=== PATIENT | female | born 1950 | race Caucasian/White ===

== ENCOUNTER 2016-06-30 13:28 | Emergency (ER) | payer MEDICARE | END 2016-06-30 14:04 | disposition home or self-care (01) | LOC: BURERS 13:28 | DX: E10.9 Type 1 diabetes mellitus without complications (principal); I25.2 Old myocardial infarction | CPT/HCPCS: 99281 ==

== ENCOUNTER 2016-09-07 16:41 | Outpatient (CLI) | payer MEDICARE | END 2016-09-07 16:42 | disposition home or self-care (01) | LOC: HPCALD 16:41 | PROVIDERS: ATTEND Family Medicine | DX: N39.0 Urinary tract infection, site not specified (principal) | CPT/HCPCS: 87077; 87086; 87186 ==

== ENCOUNTER 2016-09-10 09:06 | Outpatient (CLI) | payer MEDICARE ==
[2016-09-10 09:48] LABS: #Basophils 0.1 thou/uL (0.0-0.2); #Eosinphils 0.2 thou/uL (0.0-0.7); #Lymphocytes 2.1 thou/uL (1.20-3.40); #Monocytes 0.6 thou/uL (0.11-0.59); #Neutrophils 3.6 thou/uL (1.40-6.50); %Basophils 1.4 % (0.0-1.0); %Eosinophils 2.9 % (0.0-10.0); %Monocytes 9.3 % (0.0-10.0); %Neutrophils 54.5 % (42.0-75.0); Hemoglobin 12.3 g/dL (12.0-16.0); Mean Corpuscular HGB CONC 32.5 g/dL (32.0-36.0); Mean Corpuscular Hemoglobin 26.8 pg (27.0-31.0); Mean Corpuscular Volume 82.6 fl (81.0-99.0); Mean Platelet Volume 5.8 fL (7.4-10.4); Platelet Count 303 thou/uL (130-400); RBC Distribution Width 14.1 % (11.5-14.5); Red Blood Cell (RBC) Count 4.59 mill/uL (4.20-5.40); White Blood Cell (WBC) Count 6.5 thou/uL (4.8-10.8)
[2016-09-10 09:59] LABS: Hemoglobin A1c 7.5 % (4.0-6.0)
[2016-09-10 10:00] LABS: ALT (SGPT) 16 U/L (8-55); AST (SGOT) 18 U/L (5-34); Albumin 3.7 g/dL (3.4-4.8); Alkaline Phosphatase 81 U/L (40-150); Anion Gap 14 mmol/L (10-20); BUN (Urea Nitrogen) 28 mg/dL (9.8-20.1); Bilirubin, Total 0.3 mg/dL (0.2-1.2); Calc. Creatinine Clearance 0 mL/min (70-130); Calcium 9.6 mg/dL (7.8-10.44); Carbon Dioxide 28 mmol/L (23-31); Cardiac Risk 5.5 (Less than 4.5); Chloride 101 mmol/L (98-107); Cholesterol 149 mg/dl (< 200 Desired); Estimated GFR-MDRD 57; Globulin 3.2 g/dL (2.4-3.5); Glucose 167 mg/dL (80-115); HDL Cholesterol 27 mg/dL (>60 Neg Risk); LDL Cholesterol, Calculated 92 mg/dL; Potassium 4.1 mmol/L (3.5-5.1); Protein, Total 6.9 g/dL (6.0-8.3); Sodium 139 mmol/L (136-145); Triglycerides 152 mg/dL (Less than 150)
== END 2016-09-10 09:07 ==
LOC: HPCALD 09:06
PROVIDERS: ATTEND Family Medicine
DX: E78.5 Hyperlipidemia, unspecified (principal); E11.9 Type 2 diabetes mellitus without complications; I10 Essential (primary) hypertension
CPT/HCPCS: 36415; 80053; 80061; 83036; 85025

== ENCOUNTER 2016-11-02 16:57 | Outpatient (CLI) | payer MEDICARE, MEDICAID ==
[2016-11-02 19:01] LABS: Anion Gap 17 mmol/L (10-20); BUN (Urea Nitrogen) 24 mg/dL (9.8-20.1); Calc. Creatinine Clearance 0 mL/min (70-130); Calcium 9.8 mg/dL (7.8-10.44); Carbon Dioxide 25 mmol/L (23-31); Chloride 102 mmol/L (98-107); Estimated GFR-MDRD 45; Glucose 211 mg/dL (80-115); Potassium 4.6 mmol/L (3.5-5.1); Sodium 139 mmol/L (136-145)
== END 2016-11-02 16:58 | disposition home or self-care (01) ==
LOC: HPCALD 16:57
PROVIDERS: ATTEND Family Medicine
DX: R92.8 Other abnormal and inconclusive findings on diagnostic imaging of breast (principal)
CPT/HCPCS: 36415; 80048

== ENCOUNTER 2016-11-13 10:34 | Outpatient (CLI) | payer MEDICARE, MEDICAID | END 2016-11-13 10:35 | disposition home or self-care (01) | LOC: HPCALD 10:34 | PROVIDERS: ATTEND Family Medicine | DX: N39.0 Urinary tract infection, site not specified (principal) | CPT/HCPCS: 87077; 87086; 87186 ==

== ENCOUNTER 2017-01-11 16:52 | Outpatient (CLI) | payer MEDICARE, MEDICAID | END 2017-01-11 16:53 | disposition home or self-care (01) | LOC: HPCALD 16:52 | PROVIDERS: ATTEND Family Medicine | DX: R39.9 Unspecified symptoms and signs involving the genitourinary system (principal) | CPT/HCPCS: 87077; 87086; 87186 ==

== ENCOUNTER 2017-06-08 10:18 | Emergency (ER) | payer MEDICARE, MEDICAID ==
[2017-06-08] MEDS ORDERED: Orphenadrine Citrate 60 MG/2 ML VIAL ONE (11:00)
[2017-06-08] MEDS ORDERED: HYDROcodone/Acetaminophen 10/325 mg Tablet ONE (11:44)
--- NOTE | 2017-06-08 20:55 | RAD ---
CERVICAL SPINE TWO VIEWS 06/08/17 AP and lateral views were provided. There is no open mouth view. No fracture, dislocation or acute bony change was seen. There is disc space narrowing at C6-C7 with p rominent anterior osteophytes at that level. The other disc spaces appear normal. The C1 to dens dist ance is normal and the soft tissues are normal in thickness. IMPRESSION: Degenerative disc disease at C6-C7. No acute bony findings. POS: HOME
== END 2017-06-08 11:50 | disposition home or self-care (01) ==
LOC: BURERS 10:18
DX: M54.2 Cervicalgia (principal); I10 Essential (primary) hypertension; I25.10 Atherosclerotic heart disease of native coronary artery without angina pectoris
CPT/HCPCS: 72040; 96372; J2360

== ENCOUNTER 2017-10-25 15:13 | Outpatient (CLI) | payer MEDICAID, MEDICARE ==
--- NOTE | 2017-10-25 16:43 | RAD ---
LEFT SHOULDER THREE VIEWS: 10/25/17 No fracture, dislocation, or area of bony destruction was seen. The AC joint is normal in width. On o ne of the views, there is a hint of cortical irregularity along the inner surface of the upper raman l shaft. It is not visible at all on the other views where this area appears normal. All other bones were unremarkable. The visible adjacent lung is clear. IMPRESSION: Probably negative study, but see comment about equivocal cortical irregularity in the proximal raman l shaft on one view. Should this correlate with the site of pain, then further workup might be consid ered, such as a nuclear bone scan. As the finding is very subtle, and only visible on one view, I fee l that its significance at this point is equivocal until proven otherwise. Code T POS: HOME
== END 2017-10-25 15:14 | disposition home or self-care (01) ==
LOC: BURRAD 15:13
PROVIDERS: ATTEND Family Medicine
DX: M25.512 Pain in left shoulder (principal)

== ENCOUNTER 2018-11-23 20:52 | Emergency (ER) | payer MEDICARE ==
[~2018-11-23 20:52] MED LIST: Iopamidol 370 76% 100 ML VIAL ONE
[2018-11-23 21:30] LABS: #Basophils 0.1 thou/uL (0.0-0.2); #Eosinphils 0.2 thou/uL (0.0-0.7); #Lymphocytes 2.3 thou/uL (1.20-3.40); #Monocytes 0.8 thou/uL (0.11-0.59); #Neutrophils 4.3 thou/uL (1.40-6.50); %Basophils 1.2 % (0.0-1.0); %Eosinophils 2.3 % (0.0-10.0); %Lymphocytes 30.4 % (21.0-51.0); %Monocytes 9.9 % (0.0-10.0); %Neutrophils 56.2 % (42.0-75.0); Anisocytosis SLIGHT = 6-15 cells (100X) (0-5/hpf); MDiff Complete? YES; Mean Corpuscular HGB CONC 30.5 g/dL (32.0-36.0); Mean Corpuscular Volume 78.9 fL (78.0-98.0); Mean Platelet Volume 5.4 fL (7.4-10.4); Microcytosis SLIGHT = 6-15 cells (100X) (0-5/hpf); Ovalocytes SLIGHT = 2-5 cells (100X) (0-1/hpf); Platelet Count 299 thou/uL (130-400); Platelet Morphology Comment Appears Adequate; RBC Distribution Width 16.1 % (11.5-14.5); Red Blood Cell (RBC) Count 4.59 mill/uL (4.20-5.40); Small Platelets SLIGHT; White Blood Cell (WBC) Count 7.7 thou/uL (4.8-10.8)
[2018-11-23 21:35] LABS: ALT (SGPT) 17 U/L (8-55); AST (SGOT) 18 U/L (5-34); Albumin 3.7 g/dL (3.4-4.8); Alkaline Phosphatase 111 U/L (40-150); Anion Gap 15 mmol/L (10-20); BUN (Urea Nitrogen) 22 mg/dL (9.8-20.1); Bilirubin, Total 0.3 mg/dL (0.2-1.2); Calc. Creatinine Clearance 0 mL/min (70-130); Calcium 9.4 mg/dL (7.8-10.44); Carbon Dioxide 25 mmol/L (23-31); Chloride 101 mmol/L (98-107); Estimated GFR-MDRD 63; Globulin 3.6 g/dL (2.4-3.5); Glucose 145 mg/dL (80-115); Lipase 35 U/L (8-78); Potassium 4.5 mmol/L (3.5-5.1); Protein, Total 7.3 g/dL (6.0-8.3); Sodium 136 mmol/L (136-145)
[2018-11-23] MEDS ORDERED: Aspirin Chewable 81 MG TAB ONE (21:36)
--- NOTE | 2018-11-23 21:49 | RAD ---
XR Chest 1 View Portable History: Chest pain Comparison: None. Findings: Lungs are clear. No pneumothorax. No effusion. Cardiac silhouette and mediastinal contours appear within normal limits. Impression: No acute intrathoracic abnormality.
--- NOTE | 2018-11-23 22:26 | CT ---
CTA Angio Chest W WO Con History: Dyspnea Comparison: Radiograph same day Findings: CT angiogram chest performed after the intravenous ministration of contrast. 3-D rendering provided. No proximal segmental pulmonary arterial filling defect. No pericardial effusion. No mediastinal waylon opathy. Lungs are clear. No pneumothorax. No effusion. Low-grade atelectasis. Limited evaluation of the upper abdomen is unremarkable. No thoracic spine compression fracture no ac [place] displaced rib fracture. Impression: No proximal segmental pulmonary arterial filling defect or other acute intrathoracic abno rmality.
== END 2018-11-23 23:00 | disposition short-term general hospital (02) ==
LOC: BURERS 20:52
DX: R07.2 Precordial pain (principal); I10 Essential (primary) hypertension; E11.9 Type 2 diabetes mellitus without complications; G47.30 Sleep apnea, unspecified; I25.10 Atherosclerotic heart disease of native coronary artery without angina pectoris; I25.2 Old myocardial infarction; Z79.899 Other long term (current) drug therapy; Z79.84 Long term (current) use of oral hypoglycemic drugs
CPT/HCPCS: 71045; 71275; 80053; 83690; 83880; 84484; 85025; 85379; 93005; Q9967

== ENCOUNTER 2019-11-26 09:16 | Outpatient (CLI) | payer MEDICARE, MEDICAID ==
[2019-11-26 09:43] LABS: ALT (SGPT) 20 U/L (8-55); AST (SGOT) 17 U/L (5-34); Albumin 3.7 g/dL (3.4-4.8); Alkaline Phosphatase 120 U/L (40-110); Bilirubin, Direct 0.2 mg/dL (0.1-0.3); Bilirubin, Total 0.3 mg/dL (0.2-1.2); Cardiac Risk 3.6 (Less than 4.5); Cholesterol 114 mg/dl (< 200 Desired); HDL Cholesterol 32 mg/dL (>60 Neg Risk); LDL Cholesterol, Calculated 63 mg/dL; Protein, Total 6.8 g/dL (6.0-8.3); Triglycerides 97 mg/dL (Less than 150)
== END 2019-11-26 09:17 | disposition home or self-care (01) ==
LOC: BURLAB 09:16
PROVIDERS: ATTEND Internal Medicine Cardiovascular Disease
DX: I25.10 Atherosclerotic heart disease of native coronary artery without angina pectoris (principal)
CPT/HCPCS: 36415; 80061; 80076

== ENCOUNTER 2020-04-16 11:41 | Emergency (ER) | payer MEDICARE, MEDICAID ==
[2020-04-16 12:37] LABS: ALT (SGPT) 15 U/L (8-55); AST (SGOT) 20 U/L (5-34); Albumin 3.5 g/dL (3.4-4.8); Alkaline Phosphatase 98 U/L (40-110); Anion Gap 17 mmol/L (10-20); BUN (Urea Nitrogen) 14 mg/dL (9.8-20.1); Bilirubin, Total 0.4 mg/dL (0.2-1.2); Calc. Creatinine Clearance 0 mL/min (70-130); Calcium 9.3 mg/dL (7.8-10.44); Carbon Dioxide 27 mmol/L (23-31); Chloride 100 mmol/L (98-107); Glucose 230 mg/dL (80-115); Potassium 4.4 mmol/L (3.5-5.1); Protein, Total 7.5 g/dL (6.0-8.3); Sodium 140 mmol/L (136-145)
[2020-04-16 12:39] LABS: Band 6 % (5-11); Eosinophils 1 % (0-10); Hemoglobin 12.3 g/dL (12.0-16.0); Lymphocytes 20 % (21-51); MDiff Complete? YES; Mean Corpuscular HGB CONC 30.3 g/dL (32.0-36.0); Mean Corpuscular Hemoglobin 25.1 pg (27.0-31.0); Mean Corpuscular Volume 82.7 fL (78.0-98.0); Mean Platelet Volume 6.2 fL (7.4-10.4); Monocytes 5 % (0-10); Neutrophil 68 % (42-75); Platelet Count 245 thou/uL (130-400); RBC Distribution Width 14.6 % (11.5-14.5); Red Blood Cell (RBC) Count 4.92 mill/uL (4.20-5.40)
--- NOTE | 2020-04-16 13:35 | RAD ---
PORTABLE CHEST: 04/16/20 An AP portable film at 1234 is compared with an 11/23/18 study. The cardiac size is about the same. There are patchy interstitial and alveolar infiltrates bilaterall y, some of which have a slightly ground glass appearance. In the appropriate clinical context, COVID is a possibility as an etiology. The right hilum is slightly full, so there may be some adenopathy. W hile there is a lucent area within the density seen over the right lower lobe, it is probably not an actual cavity. But just a confluence of shadows. There are no effusions. While there is some prominen ce of the vasculature, the findings seem more likely due to infection than failure, although the latt er is not completely ruled out. The asymmetry of findings mitigates towards infection. IMPRESSION: Patchy interstitial and alveolar infiltrates. Pneumonia presumed until proven otherwise. A congestive element might be present as well. POS: HOME
[2020-04-16] MEDS ORDERED: cefTRIAXone\\ROCEPHIN 1 GM VIAL ONE (14:42)
[2020-04-16] MEDS ORDERED: Dexamethasone 4 mg/ml Vial ONE (14:42)
[2020-04-16] MEDS ORDERED: Azithromycin 500 MG VIAL ONE (14:42)
[2020-04-16] MEDS ORDERED: Enoxaparin Sodium 40 MG/0.4 ML SYRINGE ONE (14:42)
--- NOTE | 2020-04-16 16:57 | CT ---
CT OF THE CHEST WITHOUT CONTRAST: 04/16/[address] of the chest was done in this patient with dyspnea. This study was done without IV contrast . This exam shows multiple patchy ground glass infiltrates present in all lobes, present to a moderate degree. The appearance and distribution is consistent with a possible diagnosis of COVID injection. I t is more consistent with that than a conventional bacterial pneumonia. No effusions are seen. No med iastinal masses were noted. Coronary arteriosclerosis is present, especially in the LAD. A small hiat al hernia is suggested. IMPRESSION: 1. Moderate coverage of patchy ground glass infiltrates, all lobes, and an appearance that would be consistent with the diagnosis of COVID injection. Other etiologies are, of course, possible as we ll. 2. Coronary arteriosclerosis. Preliminary report called to Dr. Thompson at [id number] on 04/16/20. POS: HOME
== END 2020-04-16 17:36 | disposition short-term general hospital (02) ==
LOC: BURERS 11:41
DX: R09.02 Hypoxemia (principal); U07.1 COVID-19; Z79.899 Other long term (current) drug therapy; Z79.84 Long term (current) use of oral hypoglycemic drugs; Z79.891 Long term (current) use of opiate analgesic; I10 Essential (primary) hypertension; E11.9 Type 2 diabetes mellitus without complications; G47.30 Sleep apnea, unspecified; I25.2 Old myocardial infarction; Z87.891 Personal history of nicotine dependence
CPT/HCPCS: 36415; 71045; 71250; 80053; 83880; 84484; 85025; 87040; 87804; 93005; 96365; 96372; 96375; J0456; J0696; J1100; J1650

== ENCOUNTER 2021-06-20 15:42 | Emergency (ER) | payer OTHER, MEDICARE, MEDICAID ==
[2021-06-20] MEDS ORDERED: Fentanyl 100 MCG/2 ML VIAL ONE (16:09)
== END 2021-06-20 18:39 | disposition home or self-care (01) ==
LOC: BURERS 15:42
DX: S32.2XXA Fracture of coccyx, initial encounter for closed fracture (principal); S83.91XA Sprain of unspecified site of right knee, initial encounter; S30.1XXA Contusion of abdominal wall, initial encounter; I10 Essential (primary) hypertension; E11.9 Type 2 diabetes mellitus without complications; I25.10 Atherosclerotic heart disease of native coronary artery without angina pectoris; I25.2 Old myocardial infarction; F17.210 Nicotine dependence, cigarettes, uncomplicated; G47.30 Sleep apnea, unspecified; W01.198A Fall on same level from slipping, tripping and stumbling with subsequent striking against other object, initial encounter; Y92.002 Bathroom of unspecified non-institutional (private) residence as the place of occurrence of the external cause; Z79.84 Long term (current) use of oral hypoglycemic drugs; Z79.82 Long term (current) use of aspirin; Z79.899 Other long term (current) drug therapy
CPT/HCPCS: 71250; 72131; 72192; 96374; J3010

== ENCOUNTER 2021-12-24 14:14 | Emergency (ER) | payer OTHER, MEDICAID | END 2021-12-24 15:09 | disposition home or self-care (01) | LOC: BURERS 14:14 | DX: M25.532 Pain in left wrist (principal); I10 Essential (primary) hypertension; E11.9 Type 2 diabetes mellitus without complications; I25.2 Old myocardial infarction; I25.10 Atherosclerotic heart disease of native coronary artery without angina pectoris; Z87.891 Personal history of nicotine dependence; Z79.84 Long term (current) use of oral hypoglycemic drugs; Z79.899 Other long term (current) drug therapy ==

== ENCOUNTER 2022-02-10 18:09 | Emergency (ER) | payer OTHER, MEDICAID ==
[2022-02-10] MEDS ORDERED: Benzonatate 100 MG CAP ONE (19:08)
== END 2022-02-10 19:10 | disposition home or self-care (01) ==
LOC: BURERS 18:09
DX: B34.9 Viral infection, unspecified (principal); I10 Essential (primary) hypertension; I25.2 Old myocardial infarction; Z87.891 Personal history of nicotine dependence; Z79.82 Long term (current) use of aspirin; Z79.899 Other long term (current) drug therapy; Z79.84 Long term (current) use of oral hypoglycemic drugs
CPT/HCPCS: 87804; 99283

== ENCOUNTER 2023-01-22 20:57 | Emergency (ER) | payer MEDICAID, MEDICARE, OTHER, SELFPAY | END 2023-01-22 21:41 | disposition home or self-care (01) | LOC: BURERS 20:57 | DX: U07.1 COVID-19 (principal); I10 Essential (primary) hypertension; E11.9 Type 2 diabetes mellitus without complications; Z87.891 Personal history of nicotine dependence | CPT/HCPCS: 87635; 99283 ==

== ENCOUNTER 2024-06-21 13:16 | Emergency (ER) | payer MEDICARE, OTHER ==
[2024-06-21] MEDS ORDERED: predniSONE 20 MG TAB ONE (13:39)
[2024-06-21] MEDS ORDERED: diphenhydrAMINE 25 MG CAP ONE (13:39)
[2024-06-21 14:14] LABS: #Basophils 0.1 thou/uL (0.0-0.2); #Eosinophils 0.1 thou/uL (0.0-0.7); #Lymphocytes 1.9 thou/uL (1.20-3.40); #Monocytes 0.4 thou/uL (0.11-0.59); #Neutrophils 4.3 thou/uL (1.40-6.50); %Basophils 1.9 % (0.0-1.0); %Eosinophils 1.9 % (0.0-10.0); %Lymphocytes 27.4 % (21.0-51.0); %Monocytes 5.4 % (0.0-10.0); %Neutrophils 63.4 % (42.0-75.0); Hematocrit 41.3 % (36.0-47.0); Hemoglobin 13.6 g/dL (12.0-16.0); Mean Corpuscular HGB CONC 32.9 g/dL (32.0-36.0); Mean Corpuscular Hemoglobin 26.2 pg (27.0-31.0); Mean Corpuscular Volume 79.4 fl (78.0-98.0); Mean Platelet Volume 5.3 fL (7.4-10.4); Platelet Count 249 10x3/uL (130-400); RBC Distribution Width 12.8 % (11.5-14.5); White Blood Cell (WBC) Count 6.8 10x3/uL (4.8-10.8)
[2024-06-21 14:24] LABS: Base Excess-Venous 0.9 mmol/L (-2.0 to 3.0); Bicarbonate (HCO3v) 27.3 mmol/L (22.0-28.0); CO2 Tension (PvCO2) 49.1 mmHg (42.0-51.0); Calcium, Ionized 1.27 mmol/L (1.15-1.33); Chloride 103 mmol/L (98-107); Hemoglobin - Calc 14.9 g/dL (12.0-16.0); Potassium 4.4 mmol/L (3.5-5.1); Sodium 141 mmol/L (138-145); T. Carbon Dioxide 28.8 mmol/L (22.0-28.0); vO2 Saturation-calc 98.7 % (60.0-85.0)
== END 2024-06-21 14:36 | disposition home or self-care (01) ==
LOC: BURERS 13:16
DX: L29.9 Pruritus, unspecified (principal); I11.0 Hypertensive heart disease with heart failure; I50.9 Heart failure, unspecified; E11.9 Type 2 diabetes mellitus without complications; I25.2 Old myocardial infarction; Z87.891 Personal history of nicotine dependence; Z79.84 Long term (current) use of oral hypoglycemic drugs; Z79.899 Other long term (current) drug therapy
CPT/HCPCS: 36415; 82330; 82435; 82803; 84132; 84295; 85014; 85025; 99283; J7512